=== PATIENT | male | born 1945 | race African-American/Black ===

== ENCOUNTER 2018-07-19 07:59 | Inpatient (IN) ==
[2018-07-19] MEDS ORDERED: ENOXAPARIN 100 MG/ML SYRINGE SUBCUT STA (08:23)
[2018-07-19] MEDS ORDERED: NITROGLYCERIN SL 0.4 MG TABLET SL PRN (08:23)
[2018-07-19 08:46] LABS: Basophils % 0.6 % (0.0-0.8); Eosinophils # 0.1 10*3/uL (0.0-0.87); Eosinophils % 0.9 % (0.00-10.9); Hematocrit 30.6 VOL% (42.0-52.0); Immature Granulocytes % 0.4 %; Immature Granulocytes Absolute 0.02 #; Lymphocytes # 1.3 10*3/uL (1.4-4.0); Mean Corpuscular HGB Conc 32.7 GM/DL (32-36); Mean Corpuscular Hemoglobin 27 PG (27-34); Mean Corpuscular Volume 81.6 FL (87-102); Mean Platelet Volume 9.3 FL (9.6-12.0); Monocytes # 0.4 10*3/uL (0.11-0.8); Monocytes % 6.7 % (1.7-12.7); Neutrophils # 3.6 10*3/uL (1.4-7.4); Neutrophils % 67.4 % (38.7-73.9); Platelet Count 279 T/CUMM (130-400); Red Blood Count 3.75 MC/CUMM (3.8-5.5); Red Cell Distribution Width 15.8 % (9.3-17.3); White Blood Count 5.4 T/CUMM (4-12)
[2018-07-19 09:12] LABS: Albumin 3.1 G/DL (3.4-5.0); Bilirubin,Total 0.4 MG/DL (0.2-1.0); Calcium 8.4 MG/DL (8.5-10.1); Osmolality,Calculated 272.8 MOS/KG (273-304); Potassium 4.2 MMOL/L (3.5-5.1); Total Protein 9.2 G/DL (6.4-8.3)
[2018-07-19] MEDS ORDERED: LEVOFLOXACIN INJ 500 MG in PREMIX 1 EACH IV STA (09:26)
[2018-07-19] MEDS ORDERED: ACETAMINOPHEN 325 MG TABLET PO PRN (10:39)
[2018-07-19] MEDS ORDERED: DOCUSATE SODIUM 100 MG CAPSULE PO PRN (10:39)
[2018-07-19] MEDS ORDERED: LACTULOSE 20 GM/30 ML UDCUP PO PRN (10:39)
[2018-07-19] MEDS ORDERED: DEXTROSE 50% 25 GM/50 ML VIAL IV PRN (10:39)
[2018-07-19] MEDS ORDERED: ONDANSETRON 4 MG/2 ML VIAL IV PRN (10:39)
[2018-07-19] MEDS ORDERED: GLUCAGON 1 MG VIAL IM PRN (10:39)
[2018-07-19] MEDS ORDERED: SODIUM CHLORIDE 0.9% 100 ML IV ONE (10:46)
[2018-07-19] MEDS ORDERED: cefTRIAXone 1,000 MG VIAL ONE (10:46)
[2018-07-19] MEDS: cefTRIAXone 1,000 MG in SYRINGE 1 EACH IV SCH (10:50)
[2018-07-19] MEDS ORDERED: ENOXAPARIN 40 MG/0.4 ML SYRINGE SUBCUT SCH (12:30)
[2018-07-19] MEDS: PANTOPRAZOLE 40 MG TABLET PO SCH (12:47)
[2018-07-19] MEDS: SODIUM CHLORIDE 0.9% 1,000 ML IV SCH ×2 (12:56→22:56)
[2018-07-19] MEDS: INSULIN LISPRO 100 UNIT/ML SUBCUT SCH ×3 (13:09→20:36)
[2018-07-19 13:39] LABS: Apearance,Urine CLEAR (Clear); Bacteria,Urine Occasional /HPF (Few); Bilirubin,Urine Negative (Negative); Blood, Urine Small mg/dL (Negative); Glucose,Urine (UA) Negative (Negative); Ketones,Urine Negative (Negative); Nitrite,Urine Negative (Negative); Protein,Urine Negative; RBC,Urine <1 /HPF (0-4); Urine Color Straw (Yellow); Urine Specific Gravity 1.009 (1.001-1.035); Urine Urobilinogen < 2.0 EU/DL (0.2-1.0); WBC,Urine <1 /HPF (0-6)
[2018-07-19 14:28] LABS: HIV Antigen/Antibody Result Nonreactive (Nonreactive)
[2018-07-19] MEDS: AZITHROMYCIN INJ 500 MG in SODIUM CHLORIDE 0.9% 250 ML IV SCH (17:53)
[2018-07-19] MEDS: CARVEDILOL 6.25 MG TABLET PO SCH (20:35)
[2018-07-19] MEDS: GABAPENTIN 300 MG CAPSULE PO SCH (20:35)
[2018-07-20 04:45] LABS: Basophils % 0.8 % (0.0-0.8); Eosinophils # 0.1 10*3/uL (0.0-0.87); Eosinophils % 1.8 % (0.00-10.9); Hemoglobin 8.7 GM/DL (14.0-18.0); Immature Granulocytes % 0.5 %; Immature Granulocytes Absolute 0.02 #; Lymphocytes # 1.1 10*3/uL (1.4-4.0); Lymphocytes % 27.4 % (21.2-54.2); Mean Corpuscular HGB Conc 32.2 GM/DL (32-36); Mean Corpuscular Hemoglobin 26 PG (27-34); Mean Corpuscular Volume 81.6 FL (87-102); Mean Platelet Volume 9.6 FL (9.6-12.0); Monocytes # 0.4 10*3/uL (0.11-0.8); Neutrophils # 2.4 10*3/uL (1.4-7.4); Neutrophils % 60.5 % (38.7-73.9); Platelet Count 261 T/CUMM (130-400); Red Blood Count 3.31 MC/CUMM (3.8-5.5); Red Cell Distribution Width 15.8 % (9.3-17.3)
[2018-07-20 05:09] LABS: Calcium 7.6 MG/DL (8.5-10.1); Osmolality,Calculated 283.1 MOS/KG (273-304); Potassium 3.9 MMOL/L (3.5-5.1); Risk Ratio 4.24; VLDL CHOLESTEROL 20.6 MG/DL
[2018-07-20] MEDS: LEVOTHYROXINE 125 MCG TABLET PO SCH (06:04)
[2018-07-20] MEDS: INSULIN LISPRO 100 UNIT/ML SUBCUT SCH ×4 (08:13→22:07)
[2018-07-20] MEDS: AZITHROMYCIN INJ 500 MG in SODIUM CHLORIDE 0.9% 250 ML IV SCH (08:53)
[2018-07-20] MEDS: CARVEDILOL 6.25 MG TABLET PO SCH ×2 (08:53→20:37)
[2018-07-20] MEDS: PANTOPRAZOLE 40 MG TABLET PO SCH (08:53)
[2018-07-20] MEDS: VALSARTAN 160 MG TABLET PO SCH (08:54)
[2018-07-20] MEDS: cefTRIAXone 1,000 MG in SYRINGE 1 EACH IV SCH (08:54)
[2018-07-20] MEDS: ENOXAPARIN 40 MG/0.4 ML SYRINGE SUBCUT SCH (08:54)
[2018-07-20] MEDS: ASPIRIN EC 81 MG TABLET PO SCH (08:54)
[2018-07-20] MEDS: ALLOPURINOL 100 MG TABLET PO SCH (08:54)
[2018-07-20] MEDS: amLODIPine 5 MG TABLET PO SCH (08:54)
[2018-07-20] MEDS: LEVOFLOXACIN INJ 500 MG in PREMIX 1 EACH IV SCH (10:08)
[2018-07-20] MEDS: SODIUM CHLORIDE 0.9% 1,000 ML IV SCH ×2 (13:00→23:00)
[2018-07-20] MEDS: GABAPENTIN 300 MG CAPSULE PO SCH (20:37)
[2018-07-21 05:26] LABS: Basophils % 0.7 % (0.0-0.8); Eosinophils # 0.1 10*3/uL (0.0-0.87); Eosinophils % 1.6 % (0.00-10.9); Hematocrit 28.1 VOL% (42.0-52.0); Hemoglobin 9.2 GM/DL (14.0-18.0); Immature Granulocytes % 0.2 %; Immature Granulocytes Absolute 0.01 #; Lymphocytes % 22.7 % (21.2-54.2); Mean Corpuscular HGB Conc 32.7 GM/DL (32-36); Mean Corpuscular Hemoglobin 27 PG (27-34); Mean Corpuscular Volume 81.9 FL (87-102); Mean Platelet Volume 9.1 FL (9.6-12.0); Monocytes # 0.3 10*3/uL (0.11-0.8); Monocytes % 7.3 % (1.7-12.7); Neutrophils # 2.9 10*3/uL (1.4-7.4); Neutrophils % 67.5 % (38.7-73.9); Platelet Count 265 T/CUMM (130-400); Red Blood Count 3.43 MC/CUMM (3.8-5.5); Red Cell Distribution Width 15.7 % (9.3-17.3); White Blood Count 4.4 T/CUMM (4-12)
[2018-07-21 05:43] LABS: Osmolality,Calculated 279.3 MOS/KG (273-304); Potassium 3.7 MMOL/L (3.5-5.1)
[2018-07-21] MEDS: LEVOTHYROXINE 125 MCG TABLET PO SCH (06:20)
[2018-07-21] MEDS: INSULIN LISPRO 100 UNIT/ML SUBCUT SCH ×4 (08:51→21:46)
[2018-07-21] MEDS: amLODIPine 5 MG TABLET PO SCH (08:52)
[2018-07-21] MEDS: AZITHROMYCIN 250 MG TABLET PO SCH (08:52)
[2018-07-21] MEDS: CARVEDILOL 6.25 MG TABLET PO SCH ×2 (08:52→21:45)
[2018-07-21] MEDS: PANTOPRAZOLE 40 MG TABLET PO SCH (08:52)
[2018-07-21] MEDS: cefTRIAXone 1,000 MG in SYRINGE 1 EACH IV SCH (08:53)
[2018-07-21] MEDS: ASPIRIN EC 81 MG TABLET PO SCH (08:53)
[2018-07-21] MEDS: VALSARTAN 160 MG TABLET PO SCH (08:53)
[2018-07-21] MEDS: LEVOFLOXACIN INJ 500 MG in PREMIX 1 EACH IV SCH (09:00)
[2018-07-21] MEDS: ENOXAPARIN 40 MG/0.4 ML SYRINGE SUBCUT SCH (11:00)
[2018-07-21] MEDS: ALLOPURINOL 100 MG TABLET PO SCH (11:00)
[2018-07-21] MEDS: ROSUVASTATIN 10 MG TABLET PO SCH (21:45)
[2018-07-21] MEDS: GABAPENTIN 300 MG CAPSULE PO SCH (21:45)
[2018-07-22 06:58] LABS: Basophils % 0.6 % (0.0-0.8); Eosinophils # 0.1 10*3/uL (0.0-0.87); Eosinophils % 1.2 % (0.00-10.9); Hematocrit 29.1 VOL% (42.0-52.0); Hemoglobin 9.6 GM/DL (14.0-18.0); Immature Granulocytes % 0.4 %; Immature Granulocytes Absolute 0.02 #; Lymphocytes # 1.1 10*3/uL (1.4-4.0); Lymphocytes % 21.9 % (21.2-54.2); Mean Corpuscular Hemoglobin 27 PG (27-34); Mean Corpuscular Volume 81.3 FL (87-102); Mean Platelet Volume 9.4 FL (9.6-12.0); Monocytes # 0.3 10*3/uL (0.11-0.8); Monocytes % 6.4 % (1.7-12.7); Neutrophils # 3.5 10*3/uL (1.4-7.4); Neutrophils % 69.5 % (38.7-73.9); Platelet Count 288 T/CUMM (130-400); Red Blood Count 3.58 MC/CUMM (3.8-5.5); Red Cell Distribution Width 15.6 % (9.3-17.3)
[2018-07-22 07:32] LABS: Calcium 8.3 MG/DL (8.5-10.1); Osmolality,Calculated 278.4 MOS/KG (273-304); Potassium 3.6 MMOL/L (3.5-5.1)
[2018-07-22 07:34] LABS: Ferritin 83.2 ng/ml (26-388)
[2018-07-22] MEDS: ALLOPURINOL 100 MG TABLET PO SCH (09:41)
[2018-07-22] MEDS: VALSARTAN 160 MG TABLET PO SCH (09:42)
[2018-07-22] MEDS: INSULIN LISPRO 100 UNIT/ML SUBCUT SCH ×4 (09:42→21:21)
[2018-07-22] MEDS: LEVOFLOXACIN INJ 500 MG in PREMIX 1 EACH IV SCH (09:43)
[2018-07-22] MEDS: ENOXAPARIN 40 MG/0.4 ML SYRINGE SUBCUT SCH (09:43)
[2018-07-22] MEDS: cefTRIAXone 1,000 MG in SYRINGE 1 EACH IV SCH (09:43)
[2018-07-22] MEDS: PANTOPRAZOLE 40 MG TABLET PO SCH (09:43)
[2018-07-22] MEDS: amLODIPine 5 MG TABLET PO SCH (09:43)
[2018-07-22] MEDS: ASPIRIN EC 81 MG TABLET PO SCH (09:43)
[2018-07-22] MEDS: CARVEDILOL 6.25 MG TABLET PO SCH ×2 (09:51→21:21)
[2018-07-22] MEDS: AZITHROMYCIN 250 MG TABLET PO SCH (11:15)
[2018-07-22] MEDS: LEVOTHYROXINE 125 MCG TABLET PO SCH (19:24)
[2018-07-22] MEDS: ROSUVASTATIN 10 MG TABLET PO SCH (21:21)
[2018-07-22] MEDS: GABAPENTIN 300 MG CAPSULE PO SCH (21:22)
[2018-07-23] MEDS: LEVOTHYROXINE 125 MCG TABLET PO SCH (06:18)
[2018-07-23] MEDS: INSULIN LISPRO 100 UNIT/ML SUBCUT SCH ×4 (08:00→21:37)
[2018-07-23 08:08] LABS: Calcium 7.6 MG/DL (8.5-10.1); Osmolality,Calculated 282.1 MOS/KG (273-304); Potassium 3.9 MMOL/L (3.5-5.1)
[2018-07-23] MEDS: ENOXAPARIN 40 MG/0.4 ML SYRINGE SUBCUT SCH (08:53)
[2018-07-23] MEDS: VALSARTAN 160 MG TABLET PO SCH (08:54)
[2018-07-23] MEDS: ASPIRIN EC 81 MG TABLET PO SCH (08:54)
[2018-07-23] MEDS: ALLOPURINOL 100 MG TABLET PO SCH (08:54)
[2018-07-23] MEDS: AZITHROMYCIN 250 MG TABLET PO SCH (08:54)
[2018-07-23] MEDS: amLODIPine 5 MG TABLET PO SCH (08:54)
[2018-07-23] MEDS: CARVEDILOL 6.25 MG TABLET PO SCH ×2 (08:54→20:51)
[2018-07-23] MEDS: PANTOPRAZOLE 40 MG TABLET PO SCH (08:54)
[2018-07-23] MEDS: cefTRIAXone 1,000 MG in SYRINGE 1 EACH IV SCH (08:55)
[2018-07-23] MEDS: GABAPENTIN 300 MG CAPSULE PO SCH (20:51)
[2018-07-23] MEDS: FERROUS SULFATE 325 MG TABLET PO SCH (20:51)
[2018-07-23] MEDS: ROSUVASTATIN 10 MG TABLET PO SCH (20:51)
[2018-07-24] MEDS: LEVOTHYROXINE 125 MCG TABLET PO SCH (06:25)
[2018-07-24] MEDS: INSULIN LISPRO 100 UNIT/ML SUBCUT SCH ×2 (08:31→12:43)
[2018-07-24] MEDS: ENOXAPARIN 40 MG/0.4 ML SYRINGE SUBCUT SCH (08:31)
[2018-07-24] MEDS: VALSARTAN 160 MG TABLET PO SCH (08:32)
[2018-07-24] MEDS: PANTOPRAZOLE 40 MG TABLET PO SCH (08:33)
[2018-07-24] MEDS: CARVEDILOL 6.25 MG TABLET PO SCH (08:33)
[2018-07-24] MEDS: FERROUS SULFATE 325 MG TABLET PO SCH (08:33)
[2018-07-24] MEDS: ASPIRIN EC 81 MG TABLET PO SCH (08:33)
[2018-07-24] MEDS: ALLOPURINOL 100 MG TABLET PO SCH (08:33)
[2018-07-24] MEDS: amLODIPine 5 MG TABLET PO SCH (08:33)
[2018-07-24] MEDS ORDERED: LEVOFLOXACIN 500 MG TABLET PO SCH (09:00)
[2018-07-24 11:56] VITALS: BP 137/91
== END 2018-07-24 11:58 | disposition home or self-care (01) | DRG 195 ==
LOC: N.ED 07:59 → SUATTDRO 10:38 → N.EDINP 10:38 → N.2W 11:36 → N.2E 15:00
PROVIDERS: ADMIT Internal Medicine; ATTEND Internal Medicine